=== PATIENT | female | born 1970 | race Two or more races ===

== ENCOUNTER 2020-07-11 14:14 | Inpatient (IN) | payer OTHER, MEDICARE ==
[~2020-07-11] VITALS: Ht 185.4 cm; Wt 76.8 kg
[2020-07-11] MEDS ORDERED: SODIUM CHLORIDE 0.9% 1,000 ML IVB ONE (15:15)
[2020-07-11] MEDS ORDERED: ONDANSETRON HCL 4 MG/2 ML VIAL IV ONE (15:15)
[2020-07-11 16:15] LABS: Basophils # (auto) 0 10 ^3/uL (0-0.2); Basophils % (auto) 0.2 % (0.0-2.0); Eosinophils # (auto) 0 10 ^3/uL (0-0.8); Eosinophils % (auto) 0.1 % (0.0-7.0); Hematocrit 42.3 % (36.0-46.0); Hemoglobin 14.5 g/dL (12.2-16.2); Lymphocytes # (auto) 1.1 10 ^3/uL (0.4-5.4); Lymphocytes % (auto) 17.7 % (10.0-50.0); Mean Corpuscular Hemoglobin 32.7 pg (28.0-32.0); Mean Corpuscular Hgb Conc. 34.3 g/dL (32.0-36.0); Mean Corpuscular Volume 95.4 fL (80.0-100.0); Monocytes # (auto) 0.6 10 ^3/uL (0-1.3); Monocytes % (auto) 9.9 % (0.0-12.0); Neutrophils # (auto) 4.5 10 ^3/uL (1.6-8.6); Neutrophils % (auto) 72.1 % (37.0-80.0); Nucleated Red Blood Cells % 0.1 %; Platelet Count (auto) 156 10^3/uL (140-450); Red Blood Cells 4.43 10^6/uL (4.0-5.20); Red Cell Distribution Width 13.4 % (11.8-14.3); White Blood Cell 6.2 10^3/uL (4.4-10.8)
[2020-07-11 16:25] LABS: INR 1.01 (0.9-1.15); Partial Thromboplastin Time 28.6 sec (23.0-31.2)
[2020-07-11 16:30] LABS: Albumin 3.9 g/dL (3.4-5.0); Calcium 8.7 mg/dL (8.5-10.1); Magnesium 2.4 mg/dL (1.6-2.6); Potassium 4.4 mmol/L (3.5-5.1)
[2020-07-11] MEDS ORDERED: cefTRIAXone 1GM/50ML D5W 50 ML IV ONE (16:30)
[2020-07-11 16:34] LABS: BUN/Creatinine Ratio 14.9; Bilirubin, Total 0.6 mg/dL (0.2-1.0); Total Protein 7.3 g/dL (6.4-8.2)
[2020-07-11] MEDS ORDERED: MORPHINE SULF INJ 2 MG/ML SYRINGE 1ML IV PRN ×2 (18:30)
[2020-07-11] MEDS ORDERED: NITROGLYCERIN 0.4 MG SL TAB SL PRN (18:30)
[2020-07-11] MEDS ORDERED: LORazepam 0.5 MG TAB PO PRN (18:30)
[2020-07-11] MEDS ORDERED: SODIUM CHLORIDE 0.9% 1,000 ML IV SCH (18:30)
[2020-07-11 20:30] VITALS: BP_SYST 109; BP_DIAS 73; BP_DIAS 83
--- NOTE | 2020-07-11 20:30 | NUR ---
pt arrived via wheelchair. pt attached to 2Lnc. pt is ambulatory, and transferred self to hospital bed.
[2020-07-11] MEDS: ALBUTEROL SULF HFA 90MCG INH 200DOSE IN SCH (22:00)
[2020-07-11] MEDS: BUDESONIDE (INHALATION) 180 MCG IH IN SCH (22:00)
[2020-07-11 22:16] VITALS: BP 102/65
[2020-07-11] MEDS ORDERED: GABA100C9 PO (22:26)
[2020-07-11] MEDS ORDERED: SUMA100T2 PO (22:26)
[2020-07-11] MEDS ORDERED: PROP20TA73 PO (22:26)
[2020-07-11] MEDS ORDERED: LIDO5CRE14 EX (22:26)
[2020-07-11] MEDS ORDERED: INFLUENZA QUAD 2020-2021 0.5 ML SYRG IM ONE (22:30)
[2020-07-11] MEDS: PROMETHAZINE HCL 25 MG/ML 1ML IV PRN (22:59)
[2020-07-11] MEDS: ACETAMINOPHEN 500 MG TAB PO PRN (23:00)
[2020-07-12] VITALS (9 sets, daily range): BP systolic 83–109; BP diastolic 47–73
--- NOTE | 2020-07-12 05:30 | NUR ---
paged hospitalist regarding pts low bp. BP 83/51 MAP 62
--- NOTE | 2020-07-12 06:10 | NUR ---
hospitalist new orders received: 250ml 5% albumin via IV once. orders read back and verified.
[2020-07-12] MEDS ORDERED: ALBUMIN 5% 250 ML IV ONE (06:15)
[2020-07-12 06:19] LABS: Basophils # (auto) 0 10 ^3/uL (0-0.2); Basophils % (auto) 0.2 % (0.0-2.0); Eosinophils # (auto) 0 10 ^3/uL (0-0.8); Hematocrit 36.2 % (36.0-46.0); Hemoglobin 12.3 g/dL (12.2-16.2); Lymphocytes # (auto) 1.5 10 ^3/uL (0.4-5.4); Lymphocytes % (auto) 36.6 % (10.0-50.0); Mean Corpuscular Hemoglobin 32.4 pg (28.0-32.0); Mean Corpuscular Volume 95.2 fL (80.0-100.0); Monocytes # (auto) 0.5 10 ^3/uL (0-1.3); Monocytes % (auto) 12.3 % (0.0-12.0); Neutrophils % (auto) 50.9 % (37.0-80.0); Platelet Count (auto) 130 10^3/uL (140-450); Red Cell Distribution Width 13.3 % (11.8-14.3)
[2020-07-12 06:33] LABS: Albumin 3.1 g/dL (3.4-5.0); Potassium 3.3 mmol/L (3.5-5.1)
[2020-07-12 06:39] LABS: BUN/Creatinine Ratio 18.3; Bilirubin, Total 0.4 mg/dL (0.2-1.0); Total Protein 6.1 g/dL (6.4-8.2)
--- NOTE | 2020-07-12 07:35 | NUR ---
closing note pt resting in semi fowlers. no s/s of respiratory distress at this time. endorsed care to day shift RN Virgen.
[2020-07-12] MEDS: ALBUTEROL SULF HFA 90MCG INH 200DOSE IN SCH ×3 (07:40→22:06)
[2020-07-12] MEDS: BUDESONIDE (INHALATION) 180 MCG IH IN SCH ×2 (07:40→22:06)
--- NOTE | 2020-07-12 08:00 | NUR ---
ASSESSMENT NOTE PT IS ALERT ORIENTED X4,RESTING IN BED COMFORTABLY, OXYGEN 3 L NC SAT AT 94%, PT APPEAR VERY WEAK AND ANXIOUS,STATED AM I GOING TO BE IN ICU> PT MADE AWARE THAT SHE IS STABLE, AND SHE WILL BE FINE, ENCOURAGED PT TO MOVE MORE AND EAT WELL, AND CALL FOR ANY HELP SHE NEEDED, ENCOURAGE HER TO USE THE CALL LIGHT, SUPPORT PT AT ALL TIMES
[2020-07-12] MEDS: DexAMETHasone SOD PHOS 10MG/1ML VIAL INJ IV SCH (09:54)
[2020-07-12] MEDS: levoFLOXacin 500MG 100 ML IV SCH (09:54)
[2020-07-12] MEDS: ASCORBIC ACID 1,000 MG TAB PO SCH (09:55)
[2020-07-12] MEDS: CHOLECALCIFEROL (VITD3) 2,000 UNIT CAP PO SCH (09:55)
[2020-07-12] MEDS: ZINC SULFATE 220mg CAP or TAB PO SCH (09:55)
[2020-07-12] MEDS ORDERED: ENOXAPARIN SOD 40 MG/0.4 ML SYRINGE SC SCH (10:00)
[2020-07-12] MEDS ORDERED: POTASSIUM CHL 20 Meq TABLET PO ONE (11:00)
[2020-07-12] MEDS: traMADol HCL 50 MG TAB PO PRN ×2 (11:29→21:04)
--- NOTE | 2020-07-12 11:30 | NUR ---
CHEST PAIN PT HAS UPPER CHEST WALL ACHING PAIN, AGGRAVATED WITH UPPER BODY MOVEMENT AND TENDER TO TOUCH, TRAMADOL PO GIVEN TO PT, WARM COMPRESSES APPLIED
[2020-07-12 11:58] LABS: CRP High Sensitivity 1.01 mg/dL (< 0.3)
--- NOTE | 2020-07-12 12:15 | NUR ---
DR SIN IS HERE FOLLOWING UP ON PT WITH NEW ORDERS, TO START PT ON REMEDISIVIR, CONVALESCENT PLASMA, RAPID INFLUENZA AB, URINE CULTURE, EXPLAIN TO PT WHY, VERBALIS UNDERSTANDING
--- NOTE | 2020-07-12 12:17 | NUR ---
Nutrition Consult/assessment Note Please see attached link fro complete assessment Est energy needs BW 80 [id number] kcal (23-25 kcal/kg BW) est protein needs: 80-88 g (1-1.1g/kgBW) WIll reassess prn. Addendum: 07/12/20 at [address] Amended: Links added.
--- NOTE | 2020-07-12 12:25 | NUR ---
CALLED PHARMACY SPOKE WITH IVORY THE PHARMACIST, MADE AWARE THAT DR SIN ORDER REMEDISIVIR FOR PT, SAID THAT THE REMEDISIVIR WILL BE READY TOMORROW AND SHE WILL CONTACT DR SIN AND LET HIM KNOW
[2020-07-12 12:28] LABS: INR 1.03 (0.9-1.15); Partial Thromboplastin Time 33.1 sec (23.0-31.2)
--- NOTE | 2020-07-12 12:42 | NUR ---
PATIENT READ THE HANDOUT FOR REMEDISIVIR AND CONVALESCENT PLASMA, AND SIGN THE CONSENTS
--- NOTE | 2020-07-12 14:35 | NUR ---
PHARMACIST CALLED SAID THAT THERE IS A DOSE OF REMEDISIVIR AVAILABLE FOR PT TONIGHT
[2020-07-12 15:02] LABS: Urine WBC None Seen /hpf (0 - 5)
[2020-07-12 15:12] LABS: Urine Bacteria NONE SEEN /hpf (None Seen); Urine Blood Negative /uL (Negative); Urine Specific Gravity 1.003 (1.001-1.035)
--- NOTE | 2020-07-12 16:37 | NUR ---
PT CONTINUE STABLE, NO DISTRESS NOTED, CONTINUE MONITORING
--- NOTE | 2020-07-12 16:45 | NUR ---
REMEDISIVIR INITIATED, PRE SET OF VS TAKEN, CONTINUE MONITORING
[2020-07-12] MEDS ORDERED: REMDESIVIR 200 MG in NS 210ml LOADING DOSE ADULT IV ONE (17:00)
--- NOTE | 2020-07-12 17:01 | NUR ---
PT CONTINUE TOLERATING THE REMEDISIVIR WELL, CONTINUE MONITORING
--- NOTE | 2020-07-12 18:00 | NUR ---
PT TOLERATED THE REMEDISIVIR WELL, CONTINUE FEELING WELL, EATING DINNER WITH A GREAT APPETITE
[2020-07-12] MEDS: ENOXAPARIN SOD 40 MG/0.4 ML SYRINGE SC SCH (21:51)
--- NOTE | 2020-07-12 23:35 | NUR ---
IV insertion IV access obtained, via clean sterile technique by inserting 20 gauge catheter at LEFT FOREARM after 1 attempt. IV secured properly. No trauma to site. Patient tolerated well.
[2020-07-13] VITALS (10 sets, daily range): BP systolic 98–104; BP diastolic 61–69
--- NOTE | 2020-07-13 | NUR ---
CONVALESCENT PLASMA STARTED AT THIS TIME.
--- NOTE | 2020-07-13 02:45 | NUR ---
CONVALESCENT PLASMA TRANSFUSION COMPLETED AT THIS TIME.
[2020-07-13 06:08] LABS: Basophils # (auto) 0 10 ^3/uL (0-0.2); Basophils % (auto) 0.2 % (0.0-2.0); Eosinophils # (auto) 0 10 ^3/uL (0-0.8); Hematocrit 34.3 % (36.0-46.0); Hemoglobin 11.8 g/dL (12.2-16.2); Lymphocytes # (auto) 1.2 10 ^3/uL (0.4-5.4); Lymphocytes % (auto) 18.8 % (10.0-50.0); Mean Corpuscular Hemoglobin 32.5 pg (28.0-32.0); Mean Corpuscular Hgb Conc. 34.2 g/dL (32.0-36.0); Mean Corpuscular Volume 94.9 fL (80.0-100.0); Monocytes # (auto) 0.6 10 ^3/uL (0-1.3); Monocytes % (auto) 9.3 % (0.0-12.0); Neutrophils # (auto) 4.8 10 ^3/uL (1.6-8.6); Neutrophils % (auto) 71.7 % (37.0-80.0); Platelet Count (auto) 147 10^3/uL (140-450); Red Blood Cells 3.62 10^6/uL (4.0-5.20); Red Cell Distribution Width 13.3 % (11.8-14.3); White Blood Cell 6.7 10^3/uL (4.4-10.8)
[2020-07-13 06:28] LABS: Magnesium 2.3 mg/dL (1.6-2.6); Potassium 3.9 mmol/L (3.5-5.1)
[2020-07-13 06:35] LABS: Albumin 3.4 g/dL (3.4-5.0); BUN/Creatinine Ratio 15.5; Bilirubin, Total 0.4 mg/dL (0.2-1.0); CRP High Sensitivity 0.85 mg/dL (< 0.3); Calcium 9.1 mg/dL (8.5-10.1); Phosphorus 3.7 mg/dL (2.5-4.90); Total Protein 6.4 g/dL (6.4-8.2)
[2020-07-13] MEDS: ALBUTEROL SULF HFA 90MCG INH 200DOSE IN SCH ×4 (06:53→22:29)
[2020-07-13] MEDS: BUDESONIDE (INHALATION) 180 MCG IH IN SCH ×3 (06:54→22:29)
--- NOTE | 2020-07-13 07:40 | NUR ---
OPENING NOTE ASSUMED CARE OF PT. ALERT AND ORIENTED. NO S/S OF SOB/DISTRESS NOTED. BED SET TO LOWEST POSITION/LOCKED. BEDSIDE RAILS UP X2. CALL LIGHT WITHIN REACH. INSTRUCTED PT TO CALL FOR ASSISTANCE. UPDATE ON POC. PT VERBALIZED UNDERSTANDING. WILL CONTINUE TO MONITOR Q1HR AND PRN FOR CHANGES.
[2020-07-13] MEDS: ZINC SULFATE 220mg CAP or TAB PO SCH (11:27)
[2020-07-13] MEDS: DexAMETHasone SOD PHOS 10MG/1ML VIAL INJ IV SCH (11:27)
[2020-07-13] MEDS: ASCORBIC ACID 1,000 MG TAB PO SCH (11:27)
[2020-07-13] MEDS: levoFLOXacin 500MG 100 ML IV SCH (11:27)
[2020-07-13] MEDS: CHOLECALCIFEROL (VITD3) 2,000 UNIT CAP PO SCH (11:27)
[2020-07-13] MEDS: ENOXAPARIN SOD 40 MG/0.4 ML SYRINGE SC SCH ×2 (11:28→22:24)
[2020-07-13] MEDS ORDERED: FUROSEMIDE 20 MG/2 ML VIAL IV ONE (12:45)
[2020-07-13] MEDS ORDERED: PROP60CA34 PO (15:45)
--- NOTE | 2020-07-13 16:55 | NUR ---
HOME MEDICATION PAGED DR. SIN RE: RESUMING PATIENTS HOME MEDICATIONS. AWAITING CALL BACK. PROPRANOLOL 40MG TID GABAPENTIN 100MG TID
[2020-07-13] MEDS: REMDESIVIR 100mg in NS 230ml DAILYx4DAYS (NO VENT) IV SCH (17:15)
--- NOTE | 2020-07-13 17:15 | NUR ---
REMDESIVIR PRE-INFUSION VS BP: 100/65 MMHG HR: 80 BPM SPO2: 92% WILL CONTINUE TO MONITOR.
--- NOTE | 2020-07-13 17:25 | NUR ---
MD PER DR. SIN DO NOT RESUME HOME MEDICATION.
--- NOTE | 2020-07-13 17:30 | NUR ---
REMDESIVIR 15 MIN-INFUSION VS BP: 101/65 MMHG HR: 96 BPM SPO2: 90% NO SOB/DISTRESS NOTED. WILL CONTINUE TO MONITOR.
[2020-07-13] MEDS ORDERED: Ensure HIGH Protein Vanilla 8oz Bottle PO SCH (18:15)
--- NOTE | 2020-07-13 18:20 | NUR ---
REMDESIVIR POST-INFUSION VS BP: 97/67 MMHG HR: 90 BPM SPO2: 90% NO SOB/DISTRESS NOTED. WILL CONTINUE TO MONITOR.
--- NOTE | 2020-07-13 20:15 | NUR ---
Opening Shift Note Assumed care of patient, awake and alert. No S/S of distress/SOB or pain. Instructed on POC and to call for assist PRN, will continue to monitor for changes Q1hr and PRN.
[2020-07-13] MEDS: traMADol HCL 50 MG TAB PO PRN ×2 (20:54→20:55)
[2020-07-14] VITALS (7 sets, daily range): BP systolic 91–100; BP diastolic 51–63
[2020-07-14 05:59] LABS: Potassium 3.9 mmol/L (3.5-5.1)
[2020-07-14 06:15] LABS: Albumin 3.6 g/dL (3.4-5.0); BUN/Creatinine Ratio 21.5; Bilirubin, Total 0.4 mg/dL (0.2-1.0); Calcium 8.8 mg/dL (8.5-10.1); Total Protein 6.9 g/dL (6.4-8.2)
[2020-07-14] MEDS: ALBUTEROL SULF HFA 90MCG INH 200DOSE IN SCH ×3 (06:15→23:56)
[2020-07-14] MEDS: BUDESONIDE (INHALATION) 180 MCG IH IN SCH ×2 (06:15→23:56)
[2020-07-14] MEDS ORDERED: Ensure HIGH Protein Vanilla 8oz Bottle PO SCH (08:00)
[2020-07-14] MEDS: FUROSEMIDE 20 MG/2 ML VIAL IV SCH (09:39)
[2020-07-14] MEDS: DexAMETHasone SOD PHOS 10MG/1ML VIAL INJ IV SCH (09:39)
[2020-07-14] MEDS: levoFLOXacin 500MG 100 ML IV SCH (09:40)
[2020-07-14] MEDS: ASCORBIC ACID 1,000 MG TAB PO SCH (09:40)
[2020-07-14] MEDS: ZINC SULFATE 220mg CAP or TAB PO SCH (09:40)
[2020-07-14] MEDS: CHOLECALCIFEROL (VITD3) 2,000 UNIT CAP PO SCH (09:40)
[2020-07-14] MEDS: ENOXAPARIN SOD 40 MG/0.4 ML SYRINGE SC SCH ×2 (09:40→21:33)
[2020-07-14] MEDS: PROMETHAZINE HCL 25 MG/ML 1ML IV PRN (10:34)
--- NOTE | 2020-07-14 14:32 | NUR ---
Assessment Patient is a 49-year-old female, who is alert and oriented. Patient cognitive abilities are intact. Patient states that prior being admitted to [facility], she can ambulate independently and needs assistance with ADLs from her (Mary [phone]). Patient receives [employer] benefits as income. Patient states that she has history of Multiple Sclerosis (MS). Patient lives with her , and will return home post discharge. Patient has Advance Directive on file at [facility]. Discharge planning: Patient will return home. Post discharge needs are yet to be determine at this moment. Addendum: 07/14/20 at 1433 by LEILA PASCUAL Amended: Links added.
--- NOTE | 2020-07-14 15:02 | NUR ---
Nutrition Assessment/Consult Notes Please refer to link for full assessment notes. Est Energy needs: kcals (25-30 kcal/kgBW) Est Protein needs: 63-79 gms/day (0.8-1.0 gm/kgBW) Will continue to monitor and reassess prn. Addendum: 07/14/20 at [address] Amended: Links added.
[2020-07-14] MEDS: REMDESIVIR 100mg in NS 230ml DAILYx4DAYS (NO VENT) IV SCH (17:15)
--- NOTE | 2020-07-14 17:15 | NUR ---
REMDESIVIR PRE-INFUSION VS BP: 95/60 MMHG HR: 91 BPM SPO2: 90% WILL CONTINUE TO MONITOR.
--- NOTE | 2020-07-14 17:32 | NUR ---
REMDESIVIR 15 MIN-INFUSION VS BP: 98/60 MMHG HR: 79 BPM SPO2: 93% NO SOB/DISTRESS NOTED. WILL CONTINUE TO MONITOR.
--- NOTE | 2020-07-14 18:20 | NUR ---
REMDESIVIR POST-INFUSION VS BP: 99/67 MMHG HR: 92 BPM SPO2: 91% NO SOB/DISTRESS NOTED. WILL CONTINUE TO MONITOR.
--- NOTE | 2020-07-14 19:30 | NUR ---
Opening Shift Note Assumed care of patient, awake and alert. No S/S of distress/SOB noted. Instructed on POC and to call for assist PRN. Bed is in lowest locked position with bed rails up x2 and call light is within reach of the patient.
[2020-07-15 05:00] VITALS: BP 95/55
[2020-07-15 06:15] LABS: Potassium 3.6 mmol/L (3.5-5.1)
[2020-07-15 06:35] LABS: Albumin 3.4 g/dL (3.4-5.0); BUN/Creatinine Ratio 21.4; Bilirubin, Total 0.5 mg/dL (0.2-1.0); Calcium 8.6 mg/dL (8.5-10.1); Total Protein 6.7 g/dL (6.4-8.2)
[2020-07-15] MEDS: LACTULOSE 20Gm/30ML SOLN PO PRN (06:56)
[2020-07-15] MEDS: ALBUTEROL SULF HFA 90MCG INH 200DOSE IN SCH ×2 (07:15→22:16)
--- NOTE | 2020-07-15 07:20 | NUR ---
Opening shift note Assumed care patient resting in bed, respirations even and unlabored. No pain reported. No s/s of distress or SOB noted. Patient updated on POC and to call as needed. Bed in lowest, locked position, emily light within reach. Will continue care.
--- NOTE | 2020-07-15 08:00 | NUR ---
IV removal IV to right AC DC'd with clean sterile technique, catheter fully intact. Pressure dressing applied to site. Patient tolerated well.
[2020-07-15 09:00] VITALS: BP 98/61
[2020-07-15] MEDS: DexAMETHasone SOD PHOS 10MG/1ML VIAL INJ IV SCH (11:15)
[2020-07-15] MEDS: FUROSEMIDE 20 MG/2 ML VIAL IV SCH (11:15)
[2020-07-15] MEDS: levoFLOXacin 500MG 100 ML IV SCH (11:15)
[2020-07-15] MEDS: ASCORBIC ACID 1,000 MG TAB PO SCH (11:16)
[2020-07-15] MEDS: ZINC SULFATE 220mg CAP or TAB PO SCH (11:16)
[2020-07-15] MEDS: CHOLECALCIFEROL (VITD3) 2,000 UNIT CAP PO SCH (11:16)
[2020-07-15] MEDS: ENOXAPARIN SOD 40 MG/0.4 ML SYRINGE SC SCH ×2 (11:17→21:33)
[2020-07-15 13:00] VITALS: BP 90/66
[2020-07-15] MEDS: PROPRANOLOL HCL 20 MG TAB PO SCH ×2 (14:00→21:30)
[2020-07-15 17:00] VITALS: BP 95/56
[2020-07-15] MEDS: REMDESIVIR 100mg in NS 230ml DAILYx4DAYS (NO VENT) IV SCH (17:05)
--- NOTE | 2020-07-15 18:05 | NUR ---
Remdesivir administration completed Remdesevir administration completed at this time. Patient tolerated well with no complaints of N/V or decreased BP. Baseline VS: Temp 97.5, HR-86, BP-95/56, RR 19. 15 minutes VS: 97.5, HR 82, BP- 98/60, RR 20. Post infusion VS: Temp 97.6, HR-82, BP- 104/69, RR 20.
[2020-07-15 22:00] VITALS: BP 98/60
[2020-07-15] MEDS: BUDESONIDE (INHALATION) 180 MCG IH IN SCH (22:16)
[2020-07-16 05:00] VITALS: BP 99/62
[2020-07-16] MEDS: PROPRANOLOL HCL 20 MG TAB PO SCH ×3 (05:35→22:37)
[2020-07-16] MEDS: LACTULOSE 20Gm/30ML SOLN PO PRN (06:51)
[2020-07-16 06:52] LABS: Calcium 8.6 mg/dL (8.5-10.1); Potassium 3.5 mmol/L (3.5-5.1)
[2020-07-16 06:58] LABS: Albumin 3.3 g/dL (3.4-5.0); Bilirubin, Total 0.4 mg/dL (0.2-1.0); Total Protein 6.6 g/dL (6.4-8.2)
--- NOTE | 2020-07-16 07:20 | NUR ---
Opening shift note Assumed care patient resting in bed, respirations even and unlabored. No pain reported. No s/s of distress or SOB noted. Patient updated on POC and to call as needed. Bed in lowest, locked position, call light within reach. Will continue care.
[2020-07-16 08:00] VITALS: BP 94/61
[2020-07-16] MEDS: ALBUTEROL SULF HFA 90MCG INH 200DOSE IN SCH ×3 (09:09→22:23)
[2020-07-16] MEDS: BUDESONIDE (INHALATION) 180 MCG IH IN SCH ×2 (09:09→22:24)
[2020-07-16] MEDS: DexAMETHasone SOD PHOS 10MG/1ML VIAL INJ IV SCH (10:00)
[2020-07-16] MEDS: FUROSEMIDE 20 MG/2 ML VIAL IV SCH (11:11)
[2020-07-16] MEDS: levoFLOXacin 500MG 100 ML IV SCH (11:12)
[2020-07-16] MEDS: ZINC SULFATE 220mg CAP or TAB PO SCH (11:12)
[2020-07-16] MEDS: CHOLECALCIFEROL (VITD3) 2,000 UNIT CAP PO SCH (11:12)
[2020-07-16] MEDS: ASCORBIC ACID 1,000 MG TAB PO SCH (11:12)
[2020-07-16] MEDS: ENOXAPARIN SOD 40 MG/0.4 ML SYRINGE SC SCH ×2 (11:12→22:38)
[2020-07-16 12:00] VITALS: BP 99/69
[2020-07-16 17:00] VITALS: BP 100/64
[2020-07-16] MEDS: REMDESIVIR 100mg in NS 230ml DAILYx4DAYS (NO VENT) IV SCH (17:40)
--- NOTE | 2020-07-16 18:50 | NUR ---
Remdesivir administration completed Remdesivir administration completed at this time. Patient tolerated well with no complaints of N/V or decreased BP. Baseline VS: Temp 98.5, HR-76, BP-96/70, RR 18. 15 minutes VS: 98.5, HR 75, BP- 98/60, RR 18. Post infusion VS: Temp 98.4, HR-79, BP- 98/75, RR 20.
[2020-07-16 22:00] VITALS: BP 110/63
[2020-07-17 05:00] VITALS: BP 90/61
[2020-07-17] MEDS: PROPRANOLOL HCL 20 MG TAB PO SCH ×3 (05:45→22:00)
--- NOTE | 2020-07-17 07:03 | NUR ---
closing note pt resting in semi fowlers with HOB at 30 degrees. pt is on 1Lnc. no s/s of respiratory distress. endorsed care to day shift RN.
[2020-07-17] MEDS: ALBUTEROL SULF HFA 90MCG INH 200DOSE IN SCH ×3 (07:33→23:10)
[2020-07-17] MEDS: BUDESONIDE (INHALATION) 180 MCG IH IN SCH ×2 (07:34→23:10)
[2020-07-17 08:00] VITALS: BP 96/61
--- NOTE | 2020-07-17 08:00 | NUR ---
ASSESSMENT NOTE PT IS ALERT ORIENTED X4, RESTING IN BED COMFORTABLY STATED I FEEL MUCH BETTER, HAVE MORE STRENGTH >, ABLE TO SELF REPOSITION AND VERBALIS HER DEMANDS, PAIN 0/10, OXYGEN 1 L NC, DENIES SHORTNESS OF BREATH, CHEST PAIN, NO DISTRESS NOTED, CALL LIGHT WITHIN REACH
--- NOTE | 2020-07-17 09:30 | NUR ---
BM PT HAS A BM, NO DISTRESS NOTED
[2020-07-17] MEDS: DexAMETHasone SOD PHOS 10MG/1ML VIAL INJ IV SCH (09:32)
[2020-07-17] MEDS: levoFLOXacin 500MG 100 ML IV SCH (09:33)
[2020-07-17] MEDS: ASCORBIC ACID 1,000 MG TAB PO SCH (09:33)
[2020-07-17] MEDS: ZINC SULFATE 220mg CAP or TAB PO SCH (09:33)
[2020-07-17] MEDS: CHOLECALCIFEROL (VITD3) 2,000 UNIT CAP PO SCH (09:33)
[2020-07-17] MEDS: ENOXAPARIN SOD 40 MG/0.4 ML SYRINGE SC SCH ×2 (09:34→21:34)
[2020-07-17] MEDS: ACETAMINOPHEN 500 MG TAB PO PRN (09:58)
[2020-07-17] MEDS: FUROSEMIDE 20 MG/2 ML VIAL IV SCH (10:00)
--- NOTE | 2020-07-17 12:19 | NUR ---
DR FARR I HERE FOLLOWING UP ON PT WITH NEW ORDERS, SAID WILL HOLD ON DISCHARGE TILL PT FEEL MORE STRONGER
--- NOTE | 2020-07-17 12:25 | NUR ---
Nutrition Followup Note Wt 78kg Pt is covid positive in the covid isolation wing. Attempted to speak to pt on phone in room, unable to reach pt. Pt was a consult prior for constipation, pt with a BM today per Rn note. Pt is also with a good appetite aeb pt with 75% avg po intake x 2 days per Rn note Est energy needs BW 80 [id number] kcal (23-25 kcal/kg BW) est protein needs: 80-88 g (1-1.1g/kgBW) WIll reassess prn. Labs: Alb 3.3L BM: pt with a BM today per RN note Skin: BS 21 low risk, full details in college and career counselor note Problem PES Partially resolved: Altered nutrition related lab values r.t current chronic medical condition aeb mild hypoalb hypocalcemia Comments consider 1) ) continue assistance with meals 2) continue current plan of care Expected Outcomes/Goals: pt will have improved labs pt to continue to have >75% po intake F/u mod 3-5 days
[2020-07-17 12:48] VITALS: BP 100/67
[2020-07-17 17:28] VITALS: BP 94/63
--- NOTE | 2020-07-17 18:55 | NUR ---
PT CONTINUE STABLE, NO DISTRESS NOTED, CONTINUE MONITORING
[2020-07-17 20:51] VITALS: BP 94/63
[2020-07-17 22:00] VITALS: BP 99/66
[2020-07-18 05:00] VITALS: BP 100/61
[2020-07-18] MEDS: PROPRANOLOL HCL 20 MG TAB PO SCH ×2 (05:49→14:00)
[2020-07-18] MEDS: ALBUTEROL SULF HFA 90MCG INH 200DOSE IN SCH (06:43)
[2020-07-18] MEDS: BUDESONIDE (INHALATION) 180 MCG IH IN SCH (06:43)
--- NOTE | 2020-07-18 07:02 | NUR ---
closing note pt is resting in semi fowlers in right lateral position. no c/o pain or distress. endorsed care to day shift RN.
[2020-07-18 08:00] VITALS: BP 100/61
--- NOTE | 2020-07-18 08:00 | NUR ---
ASSESSMENT NOTE PT IS ALERT ORIENTED X4, RESTING IN BED COMFORTABLY, LOOKING FORWARD TO GO HOME TODAY, STATED I AM READY, ABLE TO SELF REPOSITION AND VERBALIS HER DEMANDS, PAIN 0/10, OXYGEN 1 L NC, DENIES SHORTNESS OF BREATH, CHEST PAIN, NO DISTRESS NOTED, CALL LIGHT WITHIN REACH
--- NOTE | 2020-07-18 08:15 | NUR ---
PATIENT ON ROOM AIR CONTINUE MONITORING, WILL CHECK HER SATURATION IN 15 MINUTES
--- NOTE | 2020-07-18 08:25 | NUR ---
ROOM AIR SATURATION 94%
[2020-07-18 08:43] LABS: Hematocrit 40.8 % (36.0-46.0); Hemoglobin 13.6 g/dL (12.2-16.2); Mean Corpuscular Hemoglobin 31.6 pg (28.0-32.0); Mean Corpuscular Hgb Conc. 33.3 g/dL (32.0-36.0); Mean Corpuscular Volume 94.9 fL (80.0-100.0); Platelet Count (auto) 300 10^3/uL (140-450); Red Cell Distribution Width 13.4 % (11.8-14.3)
[2020-07-18 09:00] VITALS: BP 98/67
[2020-07-18 09:00] LABS: Basophils % (manual) 0 (0.0-2.0); Blast Cells 0; Calcium 8.9 mg/dL (8.5-10.1); Eosinophils % (manual) 0 (0-7); Potassium 3.5 mmol/L (3.5-5.1); Reactive Lymphocytes 0
[2020-07-18 09:03] LABS: BUN/Creatinine Ratio 32.3
[2020-07-18] MEDS: ZINC SULFATE 220mg CAP or TAB PO SCH (09:37)
[2020-07-18] MEDS: CHOLECALCIFEROL (VITD3) 2,000 UNIT CAP PO SCH (09:37)
[2020-07-18] MEDS: ASCORBIC ACID 1,000 MG TAB PO SCH (09:37)
[2020-07-18] MEDS: DexAMETHasone SOD PHOS 10MG/1ML VIAL INJ IV SCH (09:37)
[2020-07-18] MEDS: levoFLOXacin 500MG 100 ML IV SCH (09:37)
[2020-07-18] MEDS: ENOXAPARIN SOD 40 MG/0.4 ML SYRINGE SC SCH (09:38)
[2020-07-18 10:00] LABS: Band Neutrophils % (manual) 1; Lymphocytes % (manual) 24 (10.0-50.0); Metamyelocytes % 1; Monocytes % (manual) 11 (0-12); Myelocytes % 1; Promyelocytes % 1
[2020-07-18] MEDS: FUROSEMIDE 20 MG/2 ML VIAL IV SCH (10:00)
--- NOTE | 2020-07-18 11:40 | NUR ---
DR FARR AT BED SIDE WITH DISCHARGE HOME INSTRUCTION, PT VERBALIS UNDERSTANDING, DR FARR MADE AWARE THAT [facility] AND [facility] ARE ON HOLD DUE TO LOW BLOOD PRESSURE
[2020-07-18] MEDS ORDERED: CHOL1CAP47 PO (12:51)
[2020-07-18] MEDS ORDERED: ASCO10003 PO (12:51)
[2020-07-18 13:00] VITALS: BP 101/67
[2020-07-18 13:01] VITALS: BP 100/61
--- NOTE | 2020-07-18 14:24 | NUR ---
ALL DISCHARGE INSTRUCTION GIVEN TO PT, VERBALIS UNDERSTANDING, REPEATED BACK THAT SHE WILL FABRIC CUTTER HER NEW RX FROM HER PHARMACY, AND MAKE OWN APPOINTMENT TOMORROW WITH DR RUIZ, INCENTIVE SPIROMETER, 911 FOR SEVERE SHORTNESS OF BREATH, SELF PRONING,
--- NOTE | 2020-07-18 14:27 | NUR ---
RIDE HOME PT STATED MY WILL BE HERE IN ONE HOUR TO PICK ME UP
--- NOTE | 2020-07-18 14:55 | NUR ---
PATIENT'S IS WAITING IN THE LOBBY
--- NOTE | 2020-07-18 15:00 | NUR ---
Discharge instructions given as ordered. Encourage to follow up with PMD as instructed. All questions and concerns addressed. Patient verbalized understanding. Medication reconciliation form completed and copy given to patient.. IV removed with catheter intact, pressure dressing applied, Telemetry unit returned to ICU. Patient taken to vehicle via wheelchair with all personal belongings, accompanied by staff . No distress noted at time of departure.
== END 2020-07-18 15:23 | disposition home or self-care (01) | DRG 177 ==
LOC: ER 14:14 → EDBD 14:14 → TELE 18:23 → TELE-EAST 20:30
PROVIDERS: ADMIT Internal Medicine; ATTEND Internal Medicine Pulmonary Disease
PROC: XW033E5 Introduction of Remdesivir Anti-infective into Peripheral Vein, Percutaneous Approach, New Technology Group 5 (ICD-10-PCS; principal; 2020-07-12)
PROC: XW13325 Transfusion of Convalescent Plasma (Nonautologous) into Peripheral Vein, Percutaneous Approach, New Technology Group 5 (ICD-10-PCS; 2020-07-12)
DX: U07.1 COVID-19 (principal); J12.89 Other viral pneumonia; J96.01 Acute respiratory failure with hypoxia; G35 Multiple sclerosis; G43.109 Migraine with aura, not intractable, without status migrainosus; Z82.49 Family history of ischemic heart disease and other diseases of the circulatory system; Z83.3 Family history of diabetes mellitus; Z90.710 Acquired absence of both cervix and uterus; F32.9 Major depressive disorder, single episode, unspecified; F41.9 Anxiety disorder, unspecified; I95.9 Hypotension, unspecified; Z91.041 Radiographic dye allergy status
CPT/HCPCS: 36415; 71045; 74176; 80048; 80053; 81001; 82728; 82962; 83036; 83605; 83615; 83690; 83735; 83880; 84100; 84443; 85007; 85025; 85027; 85379; 85610; 85652; 85730; 86141; 86850; 86900; 86901; 87040; 87070; 87086; 87426; 87804; 87880; 93005; 93970; 94640; G0378; J0696; J1100; J1956; J2405